=== PATIENT | male | born 1935 | race Caucasian/White ===

== ENCOUNTER 2023-01-23 07:33 | Inpatient (IN) ==
[2023-01-23] MEDS ORDERED: IOPAMIDOL 100 ML BOTTLE IV ONE (07:34)
[2023-01-23] MEDS ORDERED: morphine 10 MG/ML VIAL ONE (07:45)
[2023-01-23] MEDS ORDERED: ONDANSETRON 4 MG/2 ML VIAL ONE (07:45)
[2023-01-23] MEDS ORDERED: morphine 10 MG/ML VIAL IV ONE (07:45)
[2023-01-23] MEDS ORDERED: ONDANSETRON 4 MG/2 ML VIAL IV ONE ×2 (07:46→08:23)
[2023-01-23 07:49] LABS: POC Calcium, Ionized 1.1 (1.16-1.32); POC Creatinine 2.3 (0.6-1.2); POC Potassium 3.8 (3.3-5.1)
[2023-01-23] MEDS ORDERED: 0.9 % SODIUM CHLORIDE 1,000 ML IV ONE (07:51)
--- NOTE | 2023-01-23 07:53 | Emergency Department Note ---
HPI General Chief complaint: Abdominal Pain Stated complaint: nausea/vomiting, tachypnea Time Seen by Provider: 01/23/23 07:48 Source: patient Mode of arrival: ambulatory Limitations: no limitations History of Present Illness HPI Narrative: Narrative: Patient is an 87-year-old male with a history of of anemia, CKD, type 2 diabetes, hypertension, and hyperlipidemia who presents to the emergency department due to abdominal pain. Patient began to have pain at 4 AM, and it has been severe. It is sharp and in the belly with radiation to his back. He had worsening of this pain when trying to take medications. He has not had any other palliative or provocative factors. Patient endorses nausea as well. He denies any other symptoms at this time. Related Data Home Medications Medication Instructions Recorded Confirmed aspirin 81 mg chewable tablet 81 mg PO DAILY 10/22/16 01/23/23 nitroglycerin 0.4 mg sublingual 0.4 mg sublingual Q5M PRN chest 01/01/20 01/23/23 tablet pain vitamin A-vitamin C-vit E-min 1 tab PO QDAY 01/23/23 01/23/23 tablet Previous Rx's Medication Instructions Recorded cholecalciferol (vitamin D3) 50 50 mcg PO QDAY #90 tabs 12/20/20 mcg (2,000 unit) tablet telmisartan 20 mg tablet (Micardis) 20 mg PO QDAY #90 tabs 08/30/22 metoprolol succinate 25 mg 25 mg PO BID #180 tabs 10/03/22 tablet,extended release 24 hr prednisone 5 mg tablet 2.5 mg PO QDAY #90 tabs 11/03/22 allopurinol 300 mg tablet 300 mg PO QDAY #90 tabs 12/22/22 amlodipine 10 mg tablet (Norvasc) 10 mg PO QDAY #90 tabs 12/22/22 furosemide 20 mg tablet (Lasix) 20 mg PO QAM #90 tabs 12/22/22 metformin 500 mg tablet,extended 500 mg PO QDAY #90 tabs 12/22/22 release 24hr rosuvastatin 20 mg tablet (Crestor) 20 mg PO QDAY #90 tabs 12/22/22 warfarin 1 mg tablet 1.5 mg PO QDAY #135 tabs 01/02/23 warfarin 5 mg tablet 5 mg PO QDAY #90 tabs 01/02/23 omeprazole 20 mg capsule,delayed 20 mg PO QDAY #90 caps 01/09/23 release Allergies Allergy/AdvReac Type Severity Reaction Status Date / Time No Known Drug Allergies Allergy Verified 01/23/23 07:36 Review of Systems ROS ROS Narrative: Narrative: Constitutional: Denies fever or weakness Eyes: Denies vision change ENT ED: Denies throat pain or rhinorrhea Cardiovascular: Denies chest pain, dyspnea on exertion, orthopnea or edema Respiratory: Denies shortness of breath or cough Gastrointestinal: Reports abdominal pain and nausea; Denies vomiting, diarrhea, constipation, hematochezia or melena Genitourinary: Denies dysuria, frequency or hematuria Musculoskeletal: Reports back pain; Denies myalgia Integumentary: Denies rash or lesions Neurological: Denies headache or weakness PFS Narrative Patient History Narrative: Narrative: Medical/Surgical/Family History All Active Problems (Updated 01/24/23 @ 08:02 by Say Meyer MD) Abdominal pain (Acute) Cholelithiasis and cholecystitis without obstruction (Acute) Annual physical exam (Acute) 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, moderately decreased glomerular filtration rate (GFR) between 30-44 mL/min/1.73 square meter and albuminuria creatinine ratio between 30-299 mg/g (Chronic) Hyperkalemia (Acute) Osteoarthritis (Acute) Vitamin D deficiency (Chronic) Secondary hyperparathyroidism of renal origin (Chronic) Medicare annual wellness visit, subsequent (Acute) Encounter for vitamin deficiency screening (Chronic) Localized edema due to fluid overload (Chronic) 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) Polymyalgia rheumatica (Acute) Joint pain (Chronic) History of pacemaker (Chronic ~2012) Diabetes mellitus, type II (Chronic) Polymyalgia (Chronic) Bleeding tendency (Chronic) Arthritis (Chronic) Acid reflux (Chronic) History of colonoscopy (Chronic ~2009) History of tonsillectomy (Chronic) History of bilateral cataract extraction (Chronic ~2013) Type 2 diabetes mellitus with hyperglycemia, without long-term current use of insulin (Chronic) Essential hypertension (Chronic) History of pulmonary embolism (Chronic) Primary osteoarthritis of right knee (Chronic) Benign prostatic hyperplasia without lower urinary tract symptoms (Chronic) Allergic rhinitis due to allergen (Chronic) penitentiary current use of 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 (Chronic) Other restrictive cardiomyopathy (Chronic) Cardiomegaly (Chronic) Metabolic syndrome (Chronic) Gout (Chronic) Polymyalgia rheumatica (Chronic) Hyperlipidemia (Chronic) Atherosclerotic heart disease (Chronic) Contusion of head (Chronic) Upper respiratory infection (Chronic) Medical History Acid reflux Allergic rhinitis due to allergen Pollen Annual physical exam Arthritis Atherosclerotic heart disease W/O angina pectoris Benign prostatic hyperplasia without lower urinary tract symptoms Bleeding tendency On Coumadin Cardiomegaly Contusion of head Diabetes mellitus, type II Essential hypertension diagnosed in his 40s Gout History of pacemaker (~2012) History of pulmonary embolism Hyperlipidemia Joint pain penitentiary current use of 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 Medicare annual wellness visit, subsequent Metabolic syndrome Osteoarthritis Other restrictive cardiomyopathy Pacemaker PCI (pneumatosis cystoides intestinalis) (~2003) Polymyalgia Polymyalgia rheumatica Polymyalgia rheumatica Primary osteoarthritis of right knee Type 2 diabetes mellitus with hyperglycemia, without long-term current use of insulin diagnosed in his 60s, no known retinopathy or neuropathy Surgical History History of bilateral cataract extraction (~2013) History of colonoscopy (~2009) History of tonsillectomy Family History Sister ESRD (end stage renal disease) Social History Smoking Status: Never smoker Alcohol Intake Frequency: holiday/special occasion only Substance Use: does not use Exam Narrative Narrative: Narrative: General Limitations: no limitations General appearance: Present alert and in no apparent distress; Absent anxious, appears intoxicated or sleepy Head Head: Present atraumatic and normocephalic Eye Eye: Present EOMI; Absent scleral icterus or nystagmus ENT ENT: Present mucous membranes moist; Absent nasal congestion Neck Neck: Present full ROM and trachea midline Chest Chest: Present normal inspection and symmetric chest wall rise Respiratory Respiratory: Present normal lung sounds bilaterally; Absent respiratory distress, rales/crackles, wheezes, stridor or accessory muscle use Cardiovascular Cardiovascular: Present regular rate, normal rhythm and normal heart sounds Adbominal Abdominal: Present soft, tenderness, guarding, rebound and normal bowel sounds; Absent distention or rigidity Extremities Extremities: Present normal inspection and full ROM; Absent pedal edema or pretibial edema Back Back: Present normal inspection and full ROM; Absent CVA tenderness (R) or CVA tenderness (L) Neurological Neurological: Present alert and oriented X3 Psychiatric Psychiatric: Present normal affect and normal mood Skin Skin: Present warm (WNL), dry and normal color Course Vital Signs Vital signs: Vital Signs Temperature 97.1 F 01/23/23 07:33 Pulse Rate 78 01/23/23 07:33 Respiratory Rate 20 01/23/23 07:33 Blood Pressure 135/76 01/23/23 07:33 Pulse Oximetry (%) 100 01/23/23 07:33 Oxygen Delivery Method Room Air 01/23/23 07:33 Temperature 97.3 F 01/24/23 07:26 Pulse Rate 77 01/24/23 07:26 Respiratory Rate 10 L 01/24/23 07:26 Blood Pressure 104/56 01/24/23 07:26 Pulse Oximetry (%) 93 01/24/23 07:26 Oxygen Delivery Method Nasal Cannula 01/24/23 07:26 Oxygen Flow Rate (L/min) 2 01/24/23 07:26 MDM MDM Narrative Medical decision making narrative: Narrative: Patient is an 87-year-old male who presents to the emergency department due to severe abdominal pain. Patient was taken quickly to the CT scanner due to concern for possible aortic aneurysm or dissection. I did perform a bedside ultrasound prior to this, but had difficulty seeing the aorta in many locations due to shadowing from bowel gas. CT scan does not demonstrate dissection or aneurysm. There is some concern for cholelithiasis on this scan, and for this reason a formal ultrasound of the gallbladder has been ordered. Ultrasound demonstrates cholelithiasis, but no findings consistent with cholecystitis. Official CT read demonstrates findings concerning for possible internal hernia. For this reason I have called and spoken to Dr. Cali. He has agreed to review the CT scan. Dr. Cali has reviewed the CT scan, and does not feel that findings are consistent with an internal hernia, but has agreed to see and evaluate patient for admission because patient has required numerous doses of medication for pain. I do feel that a period of observation with serial abdominal exams is appropriate. Lab Data 01/24/23 05:33 01/24/23 05:33 Labs: Lab Results 01/23/23 01/23/23 01/23/23 Range/Units 07:46 07:46 07:46 WBC 13.6 H (4.5-11.0) K/mcL RBC 4.31 L (4.63-6.08) M/mcL Hgb 12.9 L (13.7-17.5) g/dL Hct 38.8 L (40.1-51.0) % POC Hct 41.0 (41-55) MCV 90.0 (80.0-100.0) fL MCH 29.9 (26.0-34.0) pg MCHC 33.2 (31.0-36.0) g/dL RDW 14.8 H (11.5-14.5) % Plt Count 250 (140-440) K/mcL MPV 11.8 (8.8-12.5) fL Immature Gran % (Auto) 0.2 (0.0-0.5) % Neut % (Auto) 60.5 (38.0-78.0) % Lymph % (Auto) 31.3 (15.5-49.0) % [place] % (Auto) 6.5 (1.0-12.0) % Eos % (Auto) 1.0 (0.0-7.0) % Baso % (Auto) 0.5 (0.0-2.0) % Lymph # (Auto) 4.25 (1.50-4.80) K/mcL [place] # (Auto) 0.88 (0.10-0.90) K/mcL Eos # (Auto) 0.14 (0.00-0.70) K/mcL Baso # (Auto) 0.07 (0.00-0.30) K/mcL Immature Gran # 0.03 (0.00-0.05) K/mcl Absolute Neutrophils 8.23 H (1.80-8.00) K/mcL POC VBG pH 7.59 H (7.32-7.42) POC VBG pCO2 at Temp 16.2 L* (41-51) POC VBG pO2 42 H (25-40) POC VBG HCO3 15.5 L (24-28) POC VBG Total CO2 16.0 L (25-29) POC Venous O2 Sat 88.0 H (40-70) POC VBG Base Excess -6.0 L (-2-2) VBG Lactic Acid 5.6 H* (0.5-2) POC Sodium 142 (133-145) POC Potassium 3.8 (3.3-5.1) POC Chloride 110 H (96-108) POC Total CO2 16.0 L (22-30) POC Anion Gap 20.0 H (8.0-16.0) POC BUN 31 H (6-20) POC Creatinine 2.3 H (0.6-1.2) POC Glucose 179 H (70-105) POC WB Ioniz Calcium 1.10 L (1.16-1.32) Total Bilirubin (0.1-1.0) mg/dL Direct Bilirubin (0-0.3) mg/dL AST (<40) U/L ALT (<40) U/L Alkaline Phosphatase (39-117) U/L Total Protein (5.9-8.4) gm/dL Albumin (3.2-5.2) gm/dL Globulin (2.2-3.7) gm/dL Lipase (7-60) U/L Urine Color Urine Appearance (Clear) Urine pH (5.0-9.0) Ur Specific [place] (1.000-1.035) Urine Protein (Negative) mg/dL Urine Glucose (UA) (Negative) mg/dL Urine Ketones (Negative) mg/dL Urine Occult Blood (Negative) mg/dL Urine Nitrate (Negative) Urine Bilirubin (Negative) mg/dL Urine Urobilinogen mg/dL Ur Leukocyte Esterase (Negative) /uL Urine RBC (0-3) /hpf Urine WBC (0-4) /hpf Ur Squamous Epith Cells (0-4) /hpf Urine Bacteria (0) /hpf Ur Culture Indicated? POC Troponin I (0.00-0.08) 01/23/23 01/23/23 01/23/23 Range/Units 07:46 07:48 10:34 WBC (4.5-11.0) K/mcL RBC (4.63-6.08) M/mcL Hgb (13.7-17.5) g/dL Hct (40.1-51.0) % POC Hct (41-55) MCV (80.0-100.0) fL MCH (26.0-34.0) pg MCHC (31.0-36.0) g/dL RDW (11.5-14.5) % Plt Count (140-440) K/mcL MPV (8.8-12.5) fL Immature Gran % (Auto) (0.0-0.5) % Neut % (Auto) (38.0-78.0) % Lymph % (Auto) (15.5-49.0) % [place] % (Auto) (1.0-12.0) % Eos % (Auto) (0.0-7.0) % Baso % (Auto) (0.0-2.0) % Lymph # (Auto) (1.50-4.80) K/mcL [place] # (Auto) (0.10-0.90) K/mcL Eos # (Auto) (0.00-0.70) K/mcL Baso # (Auto) (0.00-0.30) K/mcL Immature Gran # (0.00-0.05) K/mcl Absolute Neutrophils (1.80-8.00) K/mcL POC VBG pH 7.33 (7.32-7.42) POC VBG pCO2 at Temp 41.6 (41-51) POC VBG pO2 49 H (25-40) POC VBG HCO3 21.8 L (24-28) POC VBG Total CO2 23.0 L (25-29) POC Venous O2 Sat 82.0 H (40-70) POC VBG Base Excess -4.0 L (-2-2) VBG Lactic Acid 1.6 (0.5-2) POC Sodium (133-145) POC Potassium (3.3-5.1) POC Chloride (96-108) POC Total CO2 (22-30) POC Anion Gap (8.0-16.0) POC BUN (6-20) POC Creatinine (0.6-1.2) POC Glucose (70-105) POC WB Ioniz Calcium (1.16-1.32) Total Bilirubin 0.4 (0.1-1.0) mg/dL Direct Bilirubin < 0.2 (0-0.3) mg/dL AST 15 (<40) U/L ALT 14 (<40) U/L Alkaline Phosphatase 98 (39-117) U/L Total Protein 7.0 (5.9-8.4) gm/dL Albumin 4.4 (3.2-5.2) gm/dL Globulin 2.6 (2.2-3.7) gm/dL Lipase 61 H (7-60) U/L Urine Color Urine Appearance (Clear) Urine pH (5.0-9.0) Ur Specific [place] (1.000-1.035) Urine Protein (Negative) mg/dL Urine Glucose (UA) (Negative) mg/dL Urine Ketones (Negative) mg/dL Urine Occult Blood (Negative) mg/dL Urine Nitrate (Negative) Urine Bilirubin (Negative) mg/dL Urine Urobilinogen mg/dL Ur Leukocyte Esterase (Negative) /uL Urine RBC (0-3) /hpf Urine WBC (0-4) /hpf Ur Squamous Epith Cells (0-4) /hpf Urine Bacteria (0) /hpf Ur Culture Indicated? POC Troponin I 0.02 (0.00-0.08) 01/23/23 Range/Units 13:01 WBC (4.5-11.0) K/mcL RBC (4.63-6.08) M/mcL Hgb (13.7-17.5) g/dL Hct (40.1-51.0) % POC Hct (41-55) MCV (80.0-100.0) fL MCH (26.0-34.0) pg MCHC (31.0-36.0) g/dL RDW (11.5-14.5) % Plt Count (140-440) K/mcL MPV (8.8-12.5) fL Immature Gran % (Auto) (0.0-0.5) % Neut % (Auto) (38.0-78.0) % Lymph % (Auto) (15.5-49.0) % [place] % (Auto) (1.0-12.0) % Eos % (Auto) (0.0-7.0) % Baso % (Auto) (0.0-2.0) % Lymph # (Auto) (1.50-4.80) K/mcL [place] # (Auto) (0.10-0.90) K/mcL Eos # (Auto) (0.00-0.70) K/mcL Baso # (Auto) (0.00-0.30) K/mcL Immature Gran # (0.00-0.05) K/mcl Absolute Neutrophils (1.80-8.00) K/mcL POC VBG pH (7.32-7.42) POC VBG pCO2 at Temp (41-51) POC VBG pO2 (25-40) POC VBG HCO3 (24-28) POC VBG Total CO2 (25-29) POC Venous O2 Sat (40-70) POC VBG Base Excess (-2-2) VBG Lactic Acid (0.5-2) POC Sodium (133-145) POC Potassium (3.3-5.1) POC Chloride (96-108) POC Total CO2 (22-30) POC Anion Gap (8.0-16.0) POC BUN (6-20) POC Creatinine (0.6-1.2) POC Glucose (70-105) POC WB Ioniz Calcium (1.16-1.32) Total Bilirubin (0.1-1.0) mg/dL Direct Bilirubin (0-0.3) mg/dL AST (<40) U/L ALT (<40) U/L Alkaline Phosphatase (39-117) U/L Total Protein (5.9-8.4) gm/dL Albumin (3.2-5.2) gm/dL Globulin (2.2-3.7) gm/dL Lipase (7-60) U/L Urine Color Yellow Urine Appearance Clear (Clear) Urine pH 6.0 (5.0-9.0) Ur Specific [place] 1.030 (1.000-1.035) Urine Protein 30 A (Negative) mg/dL Urine Glucose (UA) 50 A (Negative) mg/dL Urine Ketones Negative (Negative) mg/dL Urine Occult Blood 0.03 (Negative) mg/dL Urine Nitrate Negative (Negative) Urine Bilirubin Negative (Negative) mg/dL Urine Urobilinogen 2.0 A mg/dL Ur Leukocyte Esterase Negative (Negative) /uL Urine RBC 1 (0-3) /hpf Urine WBC 1 (0-4) /hpf Ur Squamous Epith Cells < 1 (0-4) /hpf Urine Bacteria None (0) /hpf Ur Culture Indicated? No POC Troponin I (0.00-0.08) Discharge Plan Patient/Caregiver Discharge Instructions Pt seen by GENETIC COUNSELLOR/PA only: No Clinical Impression: Abdominal pain Patient Disposition: Xfer As Inpt ([facility]) Condition: Fair Discharge Date/Time: 01/23/23 14:02 Discharge Location: [facility]
[2023-01-23] MEDS ORDERED: HYDROmorphone 1 MG/ML SYRINGE IV ONE ×2 (08:33→10:44)
[2023-01-23 08:48] LABS: Basophils # (Auto) 0.07 K/mcL (0.00-0.30); Basophils % (Auto) 0.5 % (0.0-2.0); Eosinophils # (Auto) 0.14 K/mcL (0.00-0.70); Hematocrit 38.8 % (40.1-51.0); Hemoglobin 12.9 g/dL (13.7-17.5); Lymphocytes # (Auto) 4.25 K/mcL (1.50-4.80); Lymphocytes % (Auto) 31.3 % (15.5-49.0); Mean Corpuscular HGB Conc 33.2 g/dL (31.0-36.0); Mean Platelet Volume 11.8 fL (8.8-12.5); Monocytes # (Auto) 0.88 K/mcL (0.10-0.90); Monocytes % (Auto) 6.5 % (1.0-12.0); Neutrophils % (Auto) 60.5 % (38.0-78.0); Platelet Count 250 K/mcL (140-440); RBC 4.31 M/mcL (4.63-6.08); Red Cell Distribution Width 14.8 % (11.5-14.5); WBC 13.6 K/mcL (4.5-11.0)
[2023-01-23 09:00] LABS: ALT/SGPT 14 U/L (<40); AST/SGOT 15 U/L (<40); Albumin 4.4 gm/dL (3.2-5.2); Alkaline Phosphatase 98 U/L (39-117); Bilirubin,Direct < 0.2 mg/dL (0-0.3); Bilirubin,Total 0.4 mg/dL (0.1-1.0); Globulin 2.6 gm/dL (2.2-3.7)
--- NOTE | 2023-01-23 10:09 | Ultrasound Report ---
CLINICAL INFORMATION: Abdominal pain COMPARISON: None. FINDINGS: Liver is normal size with heterogeneous echotexture. No focal hepatic lesions. Multiple small stones are present within the gallbladder. Gallbladder wall is normal thickness-2 mm no focal tenderness on direct palpation. Common bile duct is normal at 4 mm. Pancreas not visualized due to bowel gas. No free fluid IMPRESSION: Cholelithiasis Interpreted and Authenticated by: Manoj Fisher 01/23/23
--- NOTE | 2023-01-23 10:37 | Cat Scan Report ---
CLINICAL INFORMATION: Elevated lactic acid and severe abdominal pain nausea COMPARISON: None. TECHNIQUE: 0.625 mm helical slices were obtained from the lung apices through the subtrochanteric regions of the femurs, prior to and 25 seconds after, intravenous injection of 80 cc Isovue-[id number]. Following reconstruction, 2.5 mm sagittal, coronal and axial reformatted images were processed and reviewed at multiple windows and levels. 7 mm MIP reconstructions were obtained through the lungs to optimize nodule detection.The exam was performed using radiation dose optimization techniques including, but not limited to, automated exposure control, adjustment of the mA and/or kV according to patient size and use of iterative reconstruction technique. FINDINGS: Pulmonary parenchymal windows show moderate patchy groundglass airspace disease throughout the posterior lower lobes more prominent on the left. This is presumably fibrosis although developing infiltrates, such as aspiration, is not excluded. Mild underlying bronchitis appreciated. There are no nodules.. Pleural spaces are unremarkable-no effusions. Mediastinal windows show the heart is mildly enlarged with heavy calcific plaque in the coronary arteries. There is also calcification of both mitral and aortic valves. Pacemaker leads satisfactory position. The pulmonary arteries are normal diameter well-opacified without evidence of embolus. Thoracic aorta is also normal diameter and well-opacified. There is no adenopathy in the mediastinal, hilar or axillary regions. Moderate hiatal hernia noted with mild wall thickening of the esophagus compatible with peptic disease. There is also a moderate paraesophageal hernia consisting of transmigrated intra-abdominal fat. The thyroid is unremarkable. Abdominal images show multiple small stones layering dependently within the gallbladder. The gallbladder is normal size and wall thickness-no evidence of cholecystitis. Intrahepatic and common bile ducts are normal caliber: CBD is 5 mm. The liver, both kidneys, right adrenal gland spleen, pancreas and aorta, including aortic branches, are normal in size, configuration and attenuation without focal lesion. 20 mm benign adenoma seen in the left adrenal gland. There is no free air, free fluid or adenopathy. Pelvic images show normal urinary bladder. Prostate is moderately enlarged with a transverse dimension of 6 cm. Seminal vesicles are normal. The stomach, small bowel, retrocecal appendix are unremarkable. There are multiple sigmoid diverticuli, but no evidence of diverticulitis. No evidence of ischemic bowel disease. There is; however a 5 cm region of fat anterior to the pancreatic head which demonstrates swirling of vasculature and slight extrinsic compression the anterior pancreatic head. This could represent a small internal hernia. Does not result in bowel obstruction or vessel compression. Bone windows show no focal osseous abnormality throughout the chest, abdomen or pelvis. There is diffuse osteopenia and degeneration in the lumbar spine IMPRESSION: 1. No definite acute disease. Anterior the pancreatic head, there is a 5 cm well circumscribed region of fat with swirling vasculature and mild compression of the anterior pancreatic head. This could represent an internal hernia. There is no evidence, however this obstructs bowel or causes only vascular compression. 2. Moderate vague groundglass airspace disease in both posterior lower lobes which likely represents fibrosis. Developing infiltrate, such as aspiration, is also possible. Suggest short-term follow-up chest radiographs. Underlying chronic bronchitis noted 3. Moderate hiatal hernia with moderate paraesophageal hernia. This would increase the patient's risk of aspiration 4. Cholelithiasis. No evidence of cholecystitis 5. Moderate prostate enlargement 6. Sigmoid diverticulosis but no evidence of diverticulitis Interpreted and Authenticated by: Manoj Fisher 01/23/23
[2023-01-23] MEDS ORDERED: 0.9 % SODIUM CHLORIDE 500 ML IV ONE (10:44)
[2023-01-23] MEDS ORDERED: ONDANSETRON 4 MG/2 ML VIAL IV PRN ×2 (11:02→15:58)
[2023-01-23] MEDS: HYDROmorphone 0.5 MG/0.5 ML SYRINGE IV PRN ×4 (12:38→23:45)
--- NOTE | 2023-01-23 14:04 | EKG ---
[facility] Test Date: 2023-01-23 Pat Name: Nico Burrows Department: ED Room: Gender: Male Ingot Stripper: : 1935 Requested By: Say Meyer Order Number: [id number] Reading MD: Adri Ayoub Measurements Intervals [place] Rate: 77 P: -5 OR: 213 QRS: -47 QRSD: 167 T: 127 QT: 466 QTc: 528 Interpretive Statements A-V dual-paced rhythm with some inhibition No further analysis attempted due to paced rhythm Electronically Signed On 01-23-2023 14:04:52 PDT by Adri Ayoub /store/M0/[id number]/[id number]
[2023-01-23 14:12] LABS: Appearance,Urine CLEAR (Clear); Bilirubin,Urine Negative (Negative); Color,Urine YELLOW; Culture Indicated,Urine No; Glucose,Urine (UA) 50 mg/dL (Negative); Ketones,Urine Negative (Negative); Leukocyte Esterase,Urine Negative /uL (Negative); Nitrate,Urine Negative (Negative); Protein,Urine 30 mg/dL (Negative); Urine Blood 0.03 mg/dL (Negative); Urine RBC 1 /hpf (0-3); Urine Squamous Epithelial Cell < 1 /hpf (0-4); Urine WBC 1 /hpf (0-4)
[2023-01-23] MEDS: LACTATED RINGERS 1,000 ML IV SCH (15:51)
[2023-01-23] MEDS: ACETAMINOPHEN 1,000 MG/100 ML BAG IV SCH (15:52)
[2023-01-23] MEDS ORDERED: ACETAMINOPHEN 1,000 MG/100 ML BAG IV SCH (16:00)
[2023-01-23] MEDS ORDERED: PROMETHAZINE 25 MG/ML VIAL IV PRN (16:04)
[2023-01-23] MEDS ORDERED: PHYTONADIONE 10 MG/ML AMPUL IV SCH (16:15)
[2023-01-23] MEDS ORDERED: 0.9 % SODIUM CHLORIDE 250 ML IV SCH (16:15)
--- NOTE | 2023-01-23 16:27 | General Surg History&Physical ---
HPI History of Present Illness Patient information: Note initiated : 01/23/23 at 4:14 pm Service Date, if different from initiated Date: [] Patient: Nico Burrows a 87 y/o M admitted on 01/23/23 for nausea/vomiting, tachypnea/hernia, cholesistitis. Chief Complaint: [] Chief complaint: Right upper quadrant pain with nausea and vomiting History of present illness: Mr. Burrows is a 87 year old M admitted with acute cholecystitis and cholelithiasis patient states that he was awakened at about 4 AM this morning with severe epigastric and right upper quadrant pain with radiation through to his back. He had severe nausea and retching but no actual emesis. The pain continued throughout the morning and he was seen in the emergency room. Exam revealed epigastric and right upper quadrant tenderness with mild guarding. He had a CT which was unremarkable except for dilated gallbladder with stones. Gallbladder ultrasound confirmed stones but no pericholecystic fluid. His pain recurs after his medication wears off. Patient has acute cholecystitis and will have cholecystectomy after his Coumadin is reversed. . Constitutional Constitutional: Present anorexia, fatigue, malaise and weakness EENT Ears: Present decreased hearing Cardiovascular Cardiovascular: Absent chest pain, claudication, dyspnea on exertion, palpatations or pedal edema Respiratory Respiratory: Absent cough, dyspnea on exertion or wheezing Gastrointestinal Gastrointestinal: Present abdominal pain, nausea and vomiting Integumentary Integumentary: Present changing lesions and unusual bruising Neurological Neurological: Present abnormal hearing and weakness Psychiatric Psychiatric: Absent depression Hematologic/Lymphatic Hematologic/Lymphatic: Present easy bleeding and easy bruising; Absent lymphadenopathy Allergic/Immunologic Allergic/Immunologic: Absent tongue swelling, throat swelling, uticaria, wheezing or lip swelling PFSH PFSH All Active Problems (Updated 01/23/23 @ 16:25 by Robert Cali MD) Cholelithiasis and cholecystitis without obstruction (Acute) Annual physical exam (Acute) 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, moderately decreased glomerular filtration rate (GFR) between 30-44 mL/min/1.73 square meter and albuminuria creatinine ratio between 30-299 mg/g (Chronic) Hyperkalemia (Acute) Osteoarthritis (Acute) Vitamin D deficiency (Chronic) Secondary hyperparathyroidism of renal origin (Chronic) Medicare annual wellness visit, subsequent (Acute) Encounter for vitamin deficiency screening (Chronic) Localized edema due to fluid overload (Chronic) 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) Polymyalgia rheumatica (Acute) Joint pain (Chronic) History of pacemaker (Chronic ~2012) Diabetes mellitus, type II (Chronic) Polymyalgia (Chronic) Bleeding tendency (Chronic) Arthritis (Chronic) Acid reflux (Chronic) History of colonoscopy (Chronic ~2009) History of tonsillectomy (Chronic) History of bilateral cataract extraction (Chronic ~2013) Type 2 diabetes mellitus with hyperglycemia, without long-term current use of insulin (Chronic) Essential hypertension (Chronic) History of pulmonary embolism (Chronic) Primary osteoarthritis of right knee (Chronic) Benign prostatic hyperplasia without lower urinary tract symptoms (Chronic) Allergic rhinitis due to allergen (Chronic) [facility] current use of 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 (Chronic) Other restrictive cardiomyopathy (Chronic) Cardiomegaly (Chronic) Metabolic syndrome (Chronic) Gout (Chronic) Polymyalgia rheumatica (Chronic) Hyperlipidemia (Chronic) Atherosclerotic heart disease (Chronic) Contusion of head (Chronic) Upper respiratory infection (Chronic) Medical History Acid reflux Allergic rhinitis due to allergen Pollen Annual physical exam Arthritis Atherosclerotic heart disease W/O angina pectoris Benign prostatic hyperplasia without lower urinary tract symptoms Bleeding tendency On Coumadin Cardiomegaly Contusion of head Diabetes mellitus, type II Essential hypertension diagnosed in his 40s Gout History of pacemaker (~2012) History of pulmonary embolism Hyperlipidemia 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 Medicare annual wellness visit, subsequent Metabolic syndrome Osteoarthritis Other restrictive cardiomyopathy Pacemaker PCI (pneumatosis cystoides intestinalis) (~2003) Polymyalgia Polymyalgia rheumatica Polymyalgia rheumatica Primary osteoarthritis of right knee Type 2 diabetes mellitus with hyperglycemia, without long-term current use of in sulin diagnosed in his 60s, no known retinopathy or neuropathy Surgical History History of bilateral cataract extraction (~2013) History of colonoscopy (~2009) History of tonsillectomy Family History Sister ESRD (end stage renal disease) Social History marital status: smoking status: Former smoker quit date: 08/13/72 alcohol intake frequency: holiday/special occasion only substance use type: does not use MEDS/ALLERGIES Home Medications and Allergies Home Medications Medication Instructions Recorded Confirmed Type aspirin 81 mg chewable tablet 81 mg PO DAILY 10/22/16 01/23/23 History nitroglycerin 0.4 mg sublingual 0.4 mg sublingual Q5M PRN chest 01/01/2001/23 History tablet pain cholecalciferol (vitamin D3) 50 50 mcg PO QDAY #90 tabs 12/20/20 01/23/23 Rx mcg (2,000 unit) tablet telmisartan 20 mg tablet (Micardis) 20 mg PO QDAY #90 tabs 08/30/22 01/23/23 Rx metoprolol succinate 25 mg 25 mg PO BID #180 tabs 10/03/22 01/23/23 Rx tablet,extended release 24 hr prednisone 5 mg tablet 2.5 mg PO QDAY #90 tabs 11/03/22 01/23/23 Rx allopurinol 300 mg tablet 300 mg PO QDAY #90 tabs 12/22/22 01/23/23 Rx amlodipine 10 mg tablet (Norvasc) 10 mg PO QDAY #90 tabs 12/22/22 01/23/23 Rx furosemide 20 mg tablet (Lasix) 20 mg PO QAM #90 tabs 12/22/22 01/23/23 Rx metformin 500 mg tablet,extended 500 mg PO QDAY #90 tabs 12/22/22 01/23/23 Rx release 24hr rosuvastatin 20 mg tablet (Crestor) 20 mg PO QDAY #90 tabs 12/22/22 01/23/23 Rx warfarin 1 mg tablet 1.5 mg PO QDAY #135 tabs 01/02/23 01/23/23 Rx warfarin 5 mg tablet 5 mg PO QDAY #90 tabs 01/02/23 01/23/23 Rx omeprazole 20 mg capsule,delayed 20 mg PO QDAY #90 caps 01/09/23 01/23/23 Rx release vitamin A-vitamin C-vit E-min 1 tab PO QDAY 01/23/23 01/23/23 History tablet Allergies Allergy/AdvReac Type Severity Reaction Status Date / Time No Known Drug Allergies Allergy Verified 01/23/23 07:36 Physical Examination Vital Signs Vital signs: Temp Pulse Resp BP Pulse Ox O2 Del Method O2 Flow Rate 97.1 F 101 H 24 H 144/75 97 Nasal Cannula 2 01/23/23 07:33 01/23/23 13:16 01/23/23 13:16 01/23/23 13:16 01/23/23 13:16 01/23/23 08:52 01/23/23 08:52 General physical appearance General physical exam: well developed, well nourished, moderate distress, severe pain and obese Eyes Eye exam: PERRL and normal ocular movement; negative icteric ENT ENT exam: normal mucosa, no congestion and decreased hearing Head Head exam IM: Present atraumatic, normal inspection and normocephalic Neck Neck exam: no masses, no bruits, trachea midline, no lymphadenopathy and no venous distension Cardiovascular Cardiovascular exam IM: Present normal rate and rhythm, RRR, +S1 and +S2; Absent JVD Respiratory Respiratory exam: normal expansion, normal respiratory effort, clear to percussion and clear to auscultation Abdomen Abdomen: Present tender (Epigastric and right upper quadrant tenderness with g uarding), guarding and distended Integumentary Integumentary: Present no rash, no growths, no abnormal pigmentation and other (Extensive bruising) Neurologic Neurologic: Present normal coordination and normal sensation Musculoskeletal Musculoskeletal: Present normal gait and normal posture Psychiatric Psychiatric: Present oriented to time, oriented to person, oriented to place, speech is normal and memory intact Results Labs 01/23/23 07:46 Labs: Abnormal lab results 01/23/23 01/23/23 01/23/23 Range/Units 07:46 07:46 07:46 WBC 13.6 H (4.5-11.0) K/mcL RBC 4.31 L (4.63-6.08) M/mcL Hgb 12.9 L (13.7-17.5) g/dL Hct 38.8 L (40.1-51.0) % RDW 14.8 H (11.5-14.5) % Absolute Neutrophils 8.23 H (1.80-8.00) K/mcL POC VBG pH 7.59 H (7.32-7.42) POC VBG pCO2 at Temp 16.2 L* (41-51) POC VBG pO2 42 H (25-40) POC VBG HCO3 15.5 L (24-28) POC VBG Total CO2 16.0 L (25-29) POC Venous O2 Sat 88.0 H (40-70) POC VBG Base Excess -6.0 L (-2-2) VBG Lactic Acid 5.6 H* (0.5-2) POC Chloride 110 H (96-108) POC Total CO2 16.0 L (22-30) POC Anion Gap 20.0 H (8.0-16.0) POC BUN 31 H (6-20) POC Creatinine 2.3 H (0.6-1.2) POC Glucose 179 H (70-105) POC WB Ioniz Calcium 1.10 L (1.16-1.32) Lipase (7-60) U/L Urine Protein (Negative) mg/dL Urine Glucose (UA) (Negative) mg/dL Urine Urobilinogen mg/dL 01/23/23 01/23/23 01/23/23 Range/Units 07:46 10:34 13:01 WBC (4.5-11.0) K/mcL RBC (4.63-6.08) M/mcL Hgb (13.7-17.5) g/dL Hct (40.1-51.0) % RDW (11.5-14.5) % Absolute Neutrophils (1.80-8.00) K/mcL POC VBG pH (7.32-7.42) POC VBG pCO2 at Temp (41-51) POC VBG pO2 49 H (25-40) POC VBG HCO3 21.8 L (24-28) POC VBG Total CO2 23.0 L (25-29) POC Venous O2 Sat 82.0 H (40-70) POC VBG Base Excess -4.0 L (-2-2) VBG Lactic Acid (0.5-2) POC Chloride (96-108) POC Total CO2 (22-30) POC Anion Gap (8.0-16.0) POC BUN (6-20) POC Creatinine (0.6-1.2) POC Glucose (70-105) POC WB Ioniz Calcium (1.16-1.32) Lipase 61 H (7-60) U/L Urine Protein 30 A (Negative) mg/dL Urine Glucose (UA) 50 A (Negative) mg/dL Urine Urobilinogen 2.0 A mg/dL Diabetes panel 01/23/23 Range/Units 07:46 AST 15 (<40) U/L ALT 14 (<40) U/L Alkaline Phosphatase 98 (39-117) U/L Total Protein 7.0 (5.9-8.4) gm/dL Albumin 4.4 (3.2-5.2) gm/dL Calcium panel 01/23/23 Range/Units 07:46 Albumin 4.4 (3.2-5.2) gm/dL Adrenal panel 01/23/23 Range/Units 07:46 Total Bilirubin 0.4 (0.1-1.0) mg/dL AST 15 (<40) U/L ALT 14 (<40) U/L Alkaline Phosphatase 98 (39-117) U/L Total Protein 7.0 (5.9-8.4) gm/dL Albumin 4.4 (3.2-5.2) gm/dL All other labs normal. A/P Assessment and plan (1) Cholelithiasis and cholecystitis without obstruction: Status: Acute (2) Anemia due to stage 3b chronic kidney disease: Status: Chronic (3) Polymyalgia rheumatica: Status: Acute (4) History of pacemaker: Status: Chronic (5) Diabetes mellitus, type II: Status: Chronic (6) Bleeding tendency: Status: Chronic Comment: On Coumadin (7) Essential hypertension: Status: Chronic Comment: diagnosed in his 40s (8) [facility] current use of 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: Status: Chronic Plan Patient will receive analgesics as needed to control pain Started on Zosyn every 6 hours Vitamin K 10 mg IV every 12 hours x2 doses Transfused 2 units of FFP tonight Recheck PT/INR in the a.m. Repeat FFP if needed in the early a.m. Scheduled for laparoscopic cholecystectomy tomorrow Sepsis Sepsis Identified: No Time Spent With Patient Time: Total time spent is greater than 50% in coordination of care (as documented) at patient's floor/unit and/or counseling patient:
[2023-01-23] MEDS: PHYTONADIONE 10 MG in 0.9 % SODIUM CHLORIDE 50 ML IV SCH (16:33)
[2023-01-23] MEDS: 0.9 % SODIUM CHLORIDE 1,000 ML IV SCH (16:33)
--- NOTE | 2023-01-23 16:39 | XRay Report ---
CLINICAL INFORMATION: preop COMPARISON: 06/06/2019 FINDINGS: The heart is mildly enlarged but unchanged. Pacemaker leads in stable satisfactory position. Mediastinum and pulmonary vessels are normal. Minor bibasilar atelectasis noted. IMPRESSION: Mild stable cardiomegaly. Interpreted and Authenticated by: Manoj Fisher 01/23/23
[2023-01-23] MEDS: PANTOPRAZOLE 40 MG VIAL IV SCH (17:51)
[2023-01-23] MEDS: PIPERACILLIN SODIUM/TAZOBACTAM 2.25 GM in DEXTROSE 5% IN WATER 50 ML IV SCH (17:52)
[2023-01-23] MEDS ORDERED: IPRATROPIUM/ALBUTEROL 3 ML AMPUL.NEB NEB PRN (17:57)
[2023-01-23] MEDS ORDERED: PHYTONADIONE 10 MG/ML AMPUL SQ SCH (21:00)
[2023-01-23] MEDS: METOPROLOL SUCCINATE 25 MG TAB.XL.24H PO SCH (21:54)
[2023-01-24] MEDS: PIPERACILLIN SODIUM/TAZOBACTAM 2.25 GM in DEXTROSE 5% IN WATER 50 ML IV SCH ×4 (00:54→18:43)
[2023-01-24] MEDS: ACETAMINOPHEN 1,000 MG/100 ML BAG IV SCH ×5 (01:06→23:38)
[2023-01-24] MEDS: HYDROmorphone 0.5 MG/0.5 ML SYRINGE IV PRN ×2 (01:55→05:31)
[2023-01-24] MEDS: LACTATED RINGERS 1,000 ML IV SCH (05:03)
[2023-01-24] MEDS: PHYTONADIONE 10 MG in 0.9 % SODIUM CHLORIDE 50 ML IV SCH (05:18)
[2023-01-24] MEDS: 0.9 % SODIUM CHLORIDE 1,000 ML IV SCH ×2 (05:32→14:02)
[2023-01-24 06:59] LABS: Basophils # (Auto) 0.02 K/mcL (0.00-0.30); Basophils % (Auto) 0.1 % (0.0-2.0); Eosinophils # (Auto) 0 K/mcL (0.00-0.70); Eosinophils % (Auto) 0 % (0.0-7.0); Hemoglobin 12.2 g/dL (13.7-17.5); Lymphocytes # (Auto) 0.88 K/mcL (1.50-4.80); Lymphocytes % (Auto) 4.8 % (15.5-49.0); Mean Cell Volume 94.9 fL (80.0-100.0); Mean Corpuscular HGB Conc 31.3 g/dL (31.0-36.0); Mean Platelet Volume 11.9 fL (8.8-12.5); Monocytes % (Auto) 4.4 % (1.0-12.0); Neutrophils % (Auto) 90.3 % (38.0-78.0); Platelet Count 229 K/mcL (140-440); RBC 4.11 M/mcL (4.63-6.08); Red Cell Distribution Width 15.8 % (11.5-14.5); WBC 18.2 K/mcL (4.5-11.0)
[2023-01-24] MEDS: PANTOPRAZOLE 40 MG VIAL IV SCH ×2 (06:59→17:42)
[2023-01-24 07:19] LABS: INR 1.3 (0.9-1.1); Prothrombin Time 16.7 sec (11.9-14.5)
[2023-01-24 07:48] LABS: ALT/SGPT 23 U/L (<40); AST/SGOT 27 U/L (<40); Albumin 4.3 gm/dL (3.2-5.2); Albumin/Globulin Ratio 1.5 (1.0-2.3); Alkaline Phosphatase 85 U/L (39-117); Bilirubin,Direct 0.4 mg/dL (<0.3); Blood Urea Nitrogen 36 mg/dL (8-23); Calcium 8.8 mg/dL (8.6-10.4); Carbon Dioxide 22 mmol/L (22-30); Chloride 105 mmol/L (96-108); Globulin 2.9 gm/dL (2.2-3.7); Glomerular Filtration Rate 26; Glucose 134 mg/dL (70-105); Lactate Dehydrogenase 248 U/L (135-225); Phosphorous 5.3 mg/dL (2.5-4.5); Triglycerides 76 mg/dL (<150); Uric Acid 3.9 mg/dL (2.5-8.0)
[2023-01-24 09:40] LABS: INR 1.3 (0.9-1.1); Prothrombin Time 16.6 sec (11.9-14.5)
[2023-01-24] MEDS: predniSONE 5 MG TABLET PO SCH (10:54)
[2023-01-24] MEDS: amLODIPine 10 MG TABLET PO SCH (10:55)
[2023-01-24] MEDS: METOPROLOL SUCCINATE 25 MG TAB.XL.24H PO SCH ×2 (10:55→20:58)
[2023-01-24] MEDS: LOSARTAN 50 MG TABLET PO SCH (10:55)
[2023-01-24] MEDS ORDERED: DEXAMETHASONE 10 MG/ML VIAL ONE (11:45)
[2023-01-24] MEDS ORDERED: fentaNYL 100 MCG/2 ML VIAL IV ONE (11:45)
[2023-01-24] MEDS ORDERED: ONDANSETRON 4 MG/2 ML VIAL ONE (11:45)
[2023-01-24] MEDS ORDERED: LIDOCAINE HCL/PF 100 MG/5 ML SYRINGE IV ONE (11:45)
[2023-01-24] MEDS ORDERED: KETAMINE 50 MG/ML Syringe (ANEST) IV ONE (11:45)
[2023-01-24] MEDS ORDERED: PHENYLephrine 1 MG/10 ML SYRINGE (ANEST) ONE (11:45)
[2023-01-24] MEDS ORDERED: FUROSEMIDE 20 MG/2 ML VIAL IV ONE (11:45)
[2023-01-24] MEDS ORDERED: ePHEDrine 50 MG/5 ML SYRINGE (ANEST) IV ONE (11:45)
[2023-01-24] MEDS ORDERED: PROPOFOL 200 MG/20 ML VIAL IV ONE (11:45)
[2023-01-24] MEDS ORDERED: MAGNESIUM SULFATE 2 GM/50 ML BAG IV ONE (11:45)
[2023-01-24] MEDS ORDERED: SUGAMMADEX SODIUM 200 MG/2 ML VIAL IV ONE (11:45)
[2023-01-24] MEDS ORDERED: ROCURONIUM 10 MG/ML ML IV ONE (11:45)
[2023-01-24] MEDS ORDERED: ONDANSETRON 4 MG/2 ML VIAL IV PRN (12:16)
[2023-01-24] MEDS ORDERED: fentaNYL 100 MCG/2 ML VIAL IV PRN (12:16)
[2023-01-24] MEDS ORDERED: PROMETHAZINE 25 MG/ML VIAL IV PRN (12:16)
[2023-01-24] MEDS ORDERED: IPRATROPIUM/ALBUTEROL 3 ML AMPUL.NEB NEB PRN (12:16)
[2023-01-24] MEDS ORDERED: NALOXONE HCL 0.4 MG/ML VIAL IV PRN (12:16)
[2023-01-24] MEDS ORDERED: LACTATED RINGERS 250 ML IV PRN (12:16)
[2023-01-24] MEDS ORDERED: diphenhydrAMINE 50 MG/ML VIAL IV PRN (12:16)
[2023-01-24] MEDS ORDERED: MEPERIDINE 25 MG/ML VIAL IV PRN (12:16)
[2023-01-24] MEDS ORDERED: LACTATED RINGERS 1,000 ML IV SCH (12:30)
--- NOTE | 2023-01-24 12:53 | Brief Operative Note ---
Brief Operative Note Date of procedure: 01/24/23 Pre-op diagnosis: acute cholecystitis with cholelithiasis Post-op diagnosis: other (acute gangrenous cholecystitis with cholelithiasis) Procedure: laparoscopic cholecystectomy Grafts/Implants: No ( #10 nehemias drain ) Anesthesia: GETA Findings: ACUTE SEVERE GANGRENOUS CHOLECYSTITIS WITH WALL NECROSIS Complications: none Surgeon: Robert Cali Estimated blood loss (cc): 25 Specimens Removed/Pathology: other Condition: stable Disposition: PACU
[2023-01-25] MEDS: PIPERACILLIN SODIUM/TAZOBACTAM 2.25 GM in DEXTROSE 5% IN WATER 50 ML IV SCH ×5 (00:38→23:42)
[2023-01-25] MEDS: 0.9 % SODIUM CHLORIDE 1,000 ML IV SCH ×5 (01:03→17:54)
[2023-01-25] MEDS: ACETAMINOPHEN 1,000 MG/100 ML BAG IV SCH ×3 (05:03→18:58)
[2023-01-25 06:42] LABS: Basophils # (Auto) 0.01 K/mcL (0.00-0.30); Basophils % (Auto) 0.1 % (0.0-2.0); Eosinophils # (Auto) 0 K/mcL (0.00-0.70); Eosinophils % (Auto) 0 % (0.0-7.0); Hematocrit 31.8 % (40.1-51.0); Hemoglobin 10.3 g/dL (13.7-17.5); Lymphocytes # (Auto) 0.66 K/mcL (1.50-4.80); Lymphocytes % (Auto) 4.9 % (15.5-49.0); Mean Cell Volume 93.8 fL (80.0-100.0); Mean Corpuscular HGB Conc 32.4 g/dL (31.0-36.0); Mean Platelet Volume 11.9 fL (8.8-12.5); Monocytes # (Auto) 0.49 K/mcL (0.10-0.90); Monocytes % (Auto) 3.7 % (1.0-12.0); Platelet Count 166 K/mcL (140-440); RBC 3.39 M/mcL (4.63-6.08); Red Cell Distribution Width 15.9 % (11.5-14.5); WBC 13.4 K/mcL (4.5-11.0)
[2023-01-25 07:11] LABS: ALT/SGPT 38 U/L (<40); AST/SGOT 85 U/L (<40); Albumin 3.4 gm/dL (3.2-5.2); Albumin/Globulin Ratio 1.3 (1.0-2.3); Alkaline Phosphatase 66 U/L (39-117); Bilirubin,Direct 0.3 mg/dL (<0.3); Bilirubin,Total 0.7 mg/dL (0.1-1.0); Blood Urea Nitrogen 42 mg/dL (8-23); Calcium 8.9 mg/dL (8.6-10.4); Carbon Dioxide 22 mmol/L (22-30); Chloride 106 mmol/L (96-108); Globulin 2.7 gm/dL (2.2-3.7); Glomerular Filtration Rate 28; Glucose 141 mg/dL (70-105); Lactate Dehydrogenase 234 U/L (135-225); Phosphorous 3.7 mg/dL (2.5-4.5); Triglycerides 92 mg/dL (<150); Uric Acid 3.9 mg/dL (2.5-8.0)
[2023-01-25] MEDS: PANTOPRAZOLE 40 MG VIAL IV SCH ×2 (07:28→17:05)
[2023-01-25] MEDS: predniSONE 5 MG TABLET PO SCH (08:09)
[2023-01-25 09:21] LABS: Neutrophils % (Auto) 90.4 % (38.0-78.0)
[2023-01-25] MEDS: METOPROLOL SUCCINATE 25 MG TAB.XL.24H PO SCH ×2 (10:07→20:40)
[2023-01-25] MEDS: LOSARTAN 50 MG TABLET PO SCH (10:07)
[2023-01-25] MEDS: amLODIPine 10 MG TABLET PO SCH (10:07)
--- NOTE | 2023-01-25 17:49 | General Surgery Progress Note ---
SUBJECTIVE Subjective Patient information: Note initiated : 01/25/23 at 5:45 pm Service Date, if different from initiated Date: [] Patient: Nico Burrows 87 y/o M admitted on 01/23/23 for nausea/vomiting, tachypnea/hernia, cholesistitis. Chief Complaint: [] Principal diagnosis: Acute gangrenous cholecystitis Interval history: Patient states that he feels much better. He has been afebrile. He denies nausea or vomiting. White blood count 13.4, hemoglobin 10.3, hematocrit 31 point Constitutional Vitals: Vital Signs Temp Pulse Resp BP Pulse Ox O2 Del Method O2 Flow Rate 98.6 F 82 16 111/64 96 Room Air 2 01/25/23 16:00 01/25/23 16:00 01/25/23 16:00 01/25/23 16:00 01/25/23 16:00 01/25/23 16:00 01/25/23 12:00 Period Temp Pulse Resp BP Sys/Rollins Pulse Ox O2 Del Method O2 Flow Rate Last 24 Hr 98.2 F-99.3 F 79-88 16-20 111-137/63-70 90-97 Nasal Cannula- Room Air 2-2 Intake and Output 01/25/23 01/25/23 01/25/23 03:59 11:59 19:59 Intake Total 7860 485 4855 Output Total 955 895 Balance 216 227 3468 Weight 244 lb 6.4 oz Intake & Output: Intake & Output 01/25/23 01/25/23 01/25/23 03:59 11:59 19:59 Intake Total 5388 224 2460 Output Total 955 895 Balance 405 759 8608 Weight 244 lb 6.4 oz Intake: IV 6407 276 5690 Sodium Chloride 0.9% 1,000 ml @ 1000 1000 100 mls/hr IV .Q10H [facility] Rx#: [id number] Zosyn 2.25 gm In Dextrose 5% in 50 50 50 Water 50 ml @ 100 mls/hr IV Q6H [facility] Rx#:[id number] Oral 100 1250 Output: Drainage 55 Abdomen 55 Drainage 45 Abdomen 45 Urine Catheter Amount 900 850 Other: Meal Lunch Percent of Meal Consumed 100% Feeding Ability Assist with Tray Set Up Urine Appearance Cloudy Clear Clear Uretheral (Rod) Clear Clear Urine Color Yellow Bright Yellow Dark Yellow Uretheral (Rod) Bright Yellow Dark Yellow Urine Odor Normal Normal Uretheral (Rod) Normal Normal Stool Size Copious Stool Color Brown Stool Consistency Liquid Loose # Bowel Movements 1 # of times incontinent of 1 Bowels ENT ENT exam: Present mucous membranes moist, normal external ear exam and normal oropharynx Neck Neck exam: Present full ROM and normal inspection Respiratory Respiratory exam: Present normal respiratory exam and CTAB Cardiovascular Cardiovascular exam: Present normal rate and rhythm, RRR, +S1 and +S2; Absent JVD GI/Abdominal GI/Abdominal exam: Present normal bowel sounds, distended (Mild diffuse distention) and tenderness (Incisional tenderness around port sites) Extremities Exam Extremities exam: Present normal inspection and neurovascular intact Neurological Exam Neurological exam: Present oriented X3; Absent motor sensory deficit Psychiatric Psychiatric exam: Present normal affect and normal mood A/P Assessment and plan (1) Cholelithiasis and cholecystitis without obstruction: Status: Acute (2) Anemia due to stage 3b chronic kidney disease: Status: Chronic (3) Diabetes mellitus, type II: Status: Chronic (4) Essential hypertension: Status: Chronic Comment: diagnosed in his 40s Plan Continue patient on antibiotics Check CBC tomorrow Check PT/INR tomorrow Time Spent With Patient Time: Total time spent is greater than 50% in coordination of care (as documented) at patient's floor/unit and/or counseling patient:
[2023-01-26] MEDS: ACETAMINOPHEN 1,000 MG/100 ML BAG IV SCH ×4 (00:19→18:55)
[2023-01-26] MEDS: 0.9 % SODIUM CHLORIDE 1,000 ML IV SCH ×2 (03:20→15:41)
[2023-01-26] MEDS: PIPERACILLIN SODIUM/TAZOBACTAM 2.25 GM in DEXTROSE 5% IN WATER 50 ML IV SCH ×3 (05:19→18:11)
[2023-01-26 06:24] LABS: Basophils # (Auto) 0.01 K/mcL (0.00-0.30); Basophils % (Auto) 0.1 % (0.0-2.0); Eosinophils # (Auto) 0.01 K/mcL (0.00-0.70); Eosinophils % (Auto) 0.1 % (0.0-7.0); Hematocrit 31.9 % (40.1-51.0); Hemoglobin 10.3 g/dL (13.7-17.5); Lymphocytes # (Auto) 0.86 K/mcL (1.50-4.80); Lymphocytes % (Auto) 7.5 % (15.5-49.0); Mean Cell Volume 92.5 fL (80.0-100.0); Mean Corpuscular HGB Conc 32.3 g/dL (31.0-36.0); Mean Platelet Volume 12.2 fL (8.8-12.5); Monocytes # (Auto) 0.44 K/mcL (0.10-0.90); Monocytes % (Auto) 3.9 % (1.0-12.0); Neutrophils % (Auto) 87.3 % (38.0-78.0); Platelet Count 182 K/mcL (140-440); RBC 3.45 M/mcL (4.63-6.08); Red Cell Distribution Width 15.7 % (11.5-14.5); WBC 11.4 K/mcL (4.5-11.0)
[2023-01-26 06:38] LABS: INR 1.1 (0.9-1.1); Prothrombin Time 15.1 sec (11.9-14.5)
[2023-01-26 06:50] LABS: ALT/SGPT 56 U/L (<40); AST/SGOT 91 U/L (<40); Albumin 3.2 gm/dL (3.2-5.2); Alkaline Phosphatase 71 U/L (39-117); Bilirubin,Direct 0.2 mg/dL (<0.3); Bilirubin,Total 0.6 mg/dL (0.1-1.0); Blood Urea Nitrogen 40 mg/dL (8-23); Calcium 8.8 mg/dL (8.6-10.4); Carbon Dioxide 21 mmol/L (22-30); Chloride 108 mmol/L (96-108); Globulin 3.2 gm/dL (2.2-3.7); Glomerular Filtration Rate 33; Glucose 138 mg/dL (70-105); Lactate Dehydrogenase 286 U/L (135-225); Phosphorous 2.4 mg/dL (2.5-4.5); Triglycerides 207 mg/dL (<150); Uric Acid 3.5 mg/dL (2.5-8.0)
[2023-01-26] MEDS: PANTOPRAZOLE 40 MG VIAL IV SCH ×2 (07:08→16:33)
[2023-01-26] MEDS: predniSONE 5 MG TABLET PO SCH (08:53)
[2023-01-26] MEDS: amLODIPine 10 MG TABLET PO SCH (09:18)
[2023-01-26] MEDS: METOPROLOL SUCCINATE 25 MG TAB.XL.24H PO SCH ×2 (09:19→20:09)
[2023-01-26] MEDS: LOSARTAN 50 MG TABLET PO SCH (09:19)
--- NOTE | 2023-01-26 15:07 | General Surgery Progress Note ---
SUBJECTIVE Subjective Patient information: Note initiated : 01/26/23 at 3:03 pm Service Date, if different from initiated Date: [] Patient: Nico Burrows 87 y/o M admitted on 01/23/23 for nausea/vomiting, tachypnea/hernia, cholesistitis. Chief Complaint: [] Principal diagnosis: Acute gangrenous cholecystitis Interval history: Patient is clinically improved. He still feels weak however he states that it is better than yesterday. Pain is controlled. He still has moderate amount of bloody drainage. Constitutional Vitals: Vital Signs Temp Pulse Resp BP Pulse Ox O2 Del Method O2 Flow Rate 98.1 F 78 18 125/75 97 Room Air 0 01/26/23 13:55 01/26/23 11:52 01/26/23 11:52 01/26/23 11:52 01/26/23 11:52 01/26/23 11:52 01/26/23 11:52 Period Temp Pulse Resp BP Sys/Rollins Pulse Ox O2 Del Method O2 Flow Rate Last 24 Hr 97.5 F-98.6 F 71-88 16-20 100-128/56-75 87-98 Nasal Cannula- Room Air 0-2 Intake and Output 01/26/23 01/26/23 01/26/23 03:59 11:59 19:59 Intake Total 9004 428 6642 Output Total 655 600 Balance 570 -210 1310 Intake & Output: Intake & Output 01/26/23 01/26/23 01/26/23 03:59 11:59 19:59 Intake Total 0436 380 5548 Output Total 655 600 Balance 570 -210 1310 Intake: IV 1893 910 1643 Sodium Chloride 0.9% 1,000 ml @ 1000 1000 100 mls/hr IV .Q10H [facility] Rx#: [id number] Zosyn 2.25 gm In Dextrose 5% in 50 50 50 Water 50 ml @ 100 mls/hr IV Q6H [facility] Rx#:[id number] Oral 75 240 260 Output: Drainage 30 Abdomen 30 Void Amount 625 600 Other: Meal Breakfast Lunch Percent of Meal Consumed 100% 100% Feeding Ability Assist with Tray Set Up Independent Urine Appearance Clear Clear Urine Color Yellow Bright Yellow Urine Odor Normal Stool Size Small Stool Color Brown Stool Consistency Loose # Voids 1 # Bowel Movements 1 # of times incontinent of 1 Bowels ENT ENT exam: Present mucous membranes moist, normal external ear exam and normal oropharynx Neck Neck exam: Present full ROM and normal inspection Respiratory Respiratory exam: Present normal respiratory exam and CTAB Cardiovascular Cardiovascular exam: Present normal rate and rhythm, RRR, +S1 and +S2; Absent JVD GI/Abdominal GI/Abdominal exam: Present normal bowel sounds, distended (Mild diffuse distention) and tenderness (Incisional tenderness around port sites) Extremities Exam Extremities exam: Present normal inspection and neurovascular intact Neurological Exam Neurological exam: Present oriented X3; Absent motor sensory deficit Psychiatric Psychiatric exam: Present normal affect and normal mood A/P Assessment and plan (1) Cholelithiasis and cholecystitis without obstruction: Status: Acute (2) Anemia due to stage 3b chronic kidney disease: Status: Chronic (3) Localized edema due to fluid overload: Status: Chronic (4) Diabetes mellitus, type II: Status: Chronic (5) History of pulmonary embolism: Status: Chronic (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
[2023-01-27] MEDS: PIPERACILLIN SODIUM/TAZOBACTAM 2.25 GM in DEXTROSE 5% IN WATER 50 ML IV SCH ×5 (00:27→23:21)
[2023-01-27] MEDS: ACETAMINOPHEN 1,000 MG/100 ML BAG IV SCH ×5 (01:04→23:48)
[2023-01-27 06:46] LABS: Basophils # (Auto) 0.01 K/mcL (0.00-0.30); Basophils % (Auto) 0.1 % (0.0-2.0); Eosinophils # (Auto) 0.15 K/mcL (0.00-0.70); Eosinophils % (Auto) 1.9 % (0.0-7.0); Hematocrit 30.5 % (40.1-51.0); Hemoglobin 9.9 g/dL (13.7-17.5); Lymphocytes # (Auto) 1.26 K/mcL (1.50-4.80); Lymphocytes % (Auto) 15.6 % (15.5-49.0); Mean Cell Volume 91.3 fL (80.0-100.0); Mean Corpuscular HGB Conc 32.5 g/dL (31.0-36.0); Mean Platelet Volume 11.8 fL (8.8-12.5); Monocytes # (Auto) 0.45 K/mcL (0.10-0.90); Monocytes % (Auto) 5.6 % (1.0-12.0); Neutrophils % (Auto) 75.3 % (38.0-78.0); Platelet Count 187 K/mcL (140-440); RBC 3.34 M/mcL (4.63-6.08); Red Cell Distribution Width 15.5 % (11.5-14.5); WBC 8.1 K/mcL (4.5-11.0)
[2023-01-27 07:19] LABS: ALT/SGPT 75 U/L (<40); AST/SGOT 86 U/L (<40); Albumin 3.2 gm/dL (3.2-5.2); Alkaline Phosphatase 78 U/L (39-117); Bilirubin,Direct 0.2 mg/dL (<0.3); Bilirubin,Total 0.7 mg/dL (0.1-1.0); Blood Urea Nitrogen 31 mg/dL (8-23); Calcium 9.2 mg/dL (8.6-10.4); Carbon Dioxide 22 mmol/L (22-30); Chloride 109 mmol/L (96-108); Globulin 3.3 gm/dL (2.2-3.7); Glomerular Filtration Rate 36; Glucose 114 mg/dL (70-105); Lactate Dehydrogenase 307 U/L (135-225); Phosphorous 1.9 mg/dL (2.5-4.5); Triglycerides 292 mg/dL (<150); Uric Acid 3.3 mg/dL (2.5-8.0)
[2023-01-27] MEDS: METOPROLOL SUCCINATE 25 MG TAB.XL.24H PO SCH ×2 (08:21→20:10)
[2023-01-27] MEDS: amLODIPine 10 MG TABLET PO SCH (08:21)
[2023-01-27] MEDS: LOSARTAN 50 MG TABLET PO SCH (08:21)
[2023-01-27] MEDS: predniSONE 5 MG TABLET PO SCH (08:21)
[2023-01-27] MEDS: PANTOPRAZOLE 40 MG VIAL IV SCH ×2 (08:22→17:28)
--- NOTE | 2023-01-27 13:42 | General Surgery Progress Note ---
SUBJECTIVE Subjective Patient information: Note initiated : 01/27/23 at 1:39 pm Service Date, if different from initiated Date: [] Patient: Nico Burrows 87 y/o M admitted on 01/23/23 for nausea/vomiting, tachypnea/hernia, cholesistitis. Chief Complaint: [] Principal diagnosis: Acute gangrenous cholecystitis Interval history: Patient continues to improve. He is afebrile. He still has bloody drainage in his Hans drain. His pain is controlled. White blood count 8.1, hemoglobin 9.9, hematocrit 30.5, BUN 31, creatinine 1.7, phosphorus 1.9, potassium 4.5. Constitutional Vitals: Vital Signs Temp Pulse Resp BP Pulse Ox O2 Del Method O2 Flow Rate 97.5 F 76 18 155/76 97 Room Air 0 01/27/23 12:00 01/27/23 12:00 01/27/23 12:00 01/27/23 12:00 01/27/23 12:00 01/27/23 12:00 01/26/23 16:00 Period Temp Pulse Resp BP Sys/Rollins Pulse Ox O2 Del Method O2 Flow Rate Last 24 Hr 97.5 F-98.7 F 62-90 16-20 121-155/65-83 95-100 Room Air-Room Air 0 Intake and Output 01/27/23 01/27/23 01/27/23 03:59 11:59 19:59 Intake Total 550 150 Output Total 50 40 Balance 500 110 Weight 248 lb Intake & Output: Intake & Output 01/27/23 01/27/23 01/27/23 03:59 11:59 19:59 Intake Total 550 150 Output Total 50 40 Balance 500 110 Weight 248 lb Intake: IV 150 150 Zosyn 2.25 gm In Dextrose 5% in 50 50 Water 50 ml @ 100 mls/hr IV Q6H [facility] Rx#:[id number] Oral 400 Output: Drainage 50 40 Abdomen 50 40 Other: Meal Breakfast Percent of Meal Consumed 100% Feeding Ability Independent # Bowel Movements 1 ENT ENT exam: Present mucous membranes moist, normal external ear exam and normal oropharynx Neck Neck exam: Present full ROM and normal inspection Respiratory Respiratory exam: Present normal respiratory exam and CTAB Cardiovascular Cardiovascular exam: Present normal rate and rhythm, RRR, +S1 and +S2; Absent JVD GI/Abdominal GI/Abdominal exam: Present normal bowel sounds, distended (Mild diffuse distention) and tenderness (Incisional tenderness around port sites) Extremities Exam Extremities exam: Present normal inspection and neurovascular intact Neurological Exam Neurological exam: Present oriented X3; Absent motor sensory deficit Psychiatric Psychiatric exam: Present normal affect and normal mood A/P Assessment and plan (1) Cholelithiasis and cholecystitis without obstruction: Status: Acute (2) Anemia due to stage 3b chronic kidney disease: Status: Chronic (3) Localized edema due to fluid overload: Status: Chronic (4) Diabetes mellitus, type II: Status: Chronic (5) History of pulmonary embolism: Status: Chronic (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
[2023-01-28] MEDS: PIPERACILLIN SODIUM/TAZOBACTAM 2.25 GM in DEXTROSE 5% IN WATER 50 ML IV SCH ×2 (05:18→11:35)
[2023-01-28] MEDS: ACETAMINOPHEN 1,000 MG/100 ML BAG IV SCH (06:03)
[2023-01-28] MEDS: METOPROLOL SUCCINATE 25 MG TAB.XL.24H PO SCH (08:56)
[2023-01-28] MEDS: amLODIPine 10 MG TABLET PO SCH (08:56)
[2023-01-28] MEDS: PANTOPRAZOLE 40 MG VIAL IV SCH (08:56)
[2023-01-28] MEDS: LOSARTAN 50 MG TABLET PO SCH (08:57)
[2023-01-28] MEDS: predniSONE 5 MG TABLET PO SCH (08:57)
--- NOTE | 2023-01-28 13:48 | Discharge Summary ---
Discharge Provider Provider IMPORTANT FOLLOW-UP INFORMATION FOR PCP: Patient information: Note initiated : 01/28/23 at 1:47 pm Service Date, if different from initiated Date: [] Patient: Nico Burrows 87 y/o M admitted on 01/23/23 for nausea/vomiting, tachypnea/hernia, cholesistitis. Chief Complaint: [] Date of admission: 01/23/23 15:58 Discharge date: 01/28/23 Primary care physician: Jay Tierney MD Admitting clinician: Robert Cali Attending physician on admission: Robert Cali Consults: 01/24/23 07:10 Consult to Physician [CONS] Routine Comment: Consulting Provider: Robert Cali Reason For Exam: Physician to Consult Attending physician on discharge: Robert Cali Discharging clinician: Robert Cali COURSE Hospital Course Hospital course: 87-year-old male with history of right upper quadrant and epigastric abdominal pain radiating through to the back with nausea. Patient presented to the emergency room with a tender abdomen and leukocytosis. Abdominal ultrasound revealed acute cholecystitis with Cholelithiasis. The patient was anticoagulated with Coumadin and received IV vitamin K and 3 units of fresh frozen plasma. After his pro time was corrected he underwent laparoscopy with the finding of acute gangrenous necrosis of the gallbladder. An uneventful cholecystectomy was performed. The patient has done well in the postoperative.. He has been afebrile. He is tolerating diet. Patient is stable for discharge Discharge diagnosis: Acute gangrenous cholecystitis with cholelithiasis Secondary discharge diagnosis: Long-term anticoagulation with Coumadin History of PE 23 years ago Diabetes mellitus Hypertension Osteoarthritis Reason for admission: Acute cholecystitis Procedures: Laparoscopic cholecystectomy Pertinent studies/significant findings: CT of abdomen and pelvis with contrast Upper abdominal ultrasound Complications: None Time Spent with Patient Time attestation: Total time spent providing and/or coordinating discharge services: Time spent: Less than 30 minutes Physical Examination Vital Signs Vital signs: Temp Pulse Resp BP Pulse Ox O2 Del Method O2 Flow Rate 97.9 F 80 16 152/80 99 Room Air 0 01/28/23 11:32 01/28/23 11:32 01/28/23 11:32 01/28/23 11:32 01/28/23 11:32 01/28/23 11:32 01/26/23 16:00 General physical appearance General physical exam: well developed, well nourished, moderate distress, severe pain and obese Eyes Eye exam: PERRL and normal ocular movement; negative icteric ENT ENT exam: normal mucosa, no congestion and decreased hearing Head Head exam IM: Present atraumatic, normal inspection and normocephalic Neck Neck exam: no masses, no bruits, trachea midline, no lymphadenopathy and no venous distension Cardiovascular Cardiovascular exam IM: Present normal rate and rhythm, RRR, +S1 and +S2; Absent JVD Respiratory Respiratory exam: normal expansion, normal respiratory effort, clear to percussion and clear to auscultation Abdomen Abdomen: Present tender (Mild tenderness around port site and drain), guarding and distended Integumentary Integumentary: Present no rash, no growths, no abnormal pigmentation and other (Extensive bruising) Neurologic Neurologic: Present normal coordination and normal sensation Musculoskeletal Musculoskeletal: Present normal gait and normal posture Psychiatric Psychiatric: Present oriented to time, oriented to person, oriented to place, speech is normal and memory intact Discharge Plan Patient/Caregiver Discharge Instructions Activity: increase activity as tolerated Diet: Low Fat and Consistent Carbohydrate Prescriptions: New amoxicillin-pot clavulanate [Augmentin] 500-125 mg tablet 1 tab PO BID Qty: 20 0RF Continued telmisartan [Micardis] 20 mg tablet 20 mg PO QDAY Qty: 90 1RF metoprolol succinate 25 mg tablet extended release 24 hr 25 mg PO BID Qty: 180 1RF allopurinol 300 mg tablet 300 mg PO QDAY Qty: 90 1RF furosemide [Lasix] 20 mg tablet 20 mg PO QAM Qty: 90 1RF amlodipine [Norvasc] 10 mg tablet 10 mg PO QDAY Qty: 90 1RF rosuvastatin [Crestor] 20 mg tablet 20 mg PO QDAY Qty: 90 1RF metformin 500 mg tablet extended release 24hr 500 mg PO QDAY Qty: 90 1RF omeprazole 20 mg capsule,delayed release(DR/EC) 20 mg PO QDAY Qty: 90 1RF nitroglycerin 0.4 mg tablet, sublingual 0.4 mg SUBLINGUAL Q5M PRN (Reason: chest pain ) prednisone 5 mg tablet 2.5 mg PO QDAY Qty: 90 1RF cholecalciferol (vitamin D3) 50 mcg (2,000 unit) tablet 50 mcg PO QDAY Qty: 90 3RF aspirin 81 MG tablet,chewable 81 mg PO DAILY Patient Comments: not taking currently vitamin A-vitamin C-vit E-min Tablet 1 tab PO QDAY Patient Comments: not taking now Discontinued warfarin 5 mg tablet 5 mg PO QDAY Qty: 90 1RF Protocol: Dose Management Condition: Sunday Dose/Route: 6.5 mg Instruction: 6.5 x 1 mg tablets Condition: Sunday Dose/Route: 6.5 mg Instruction: 6.5 x 1 mg tablets Condition: Sunday Dose/Route: 6.5 mg Instruction: 6.5 x 1 mg tablets Condition: Sunday Dose/Route: 6.5 mg Instruction: 6.5 x 1 mg tablets Condition: Dose/Route: 6.5 mg Instruction: 6.5 x 1 mg tablets Condition: Sunday Dose/Route: 6.5 mg Instruction: 6.5 x 1 mg tablets Condition: Sunday Dose/Route: 6.5 mg Instruction: 6.5 x 1 mg tablets Protocol Text: Adjustment Start Date: 01/18/23 INR Value: 2.1 INR Date: 01/18/23 Recheck Date: 02/09/23 Rx Instructions: Or as directed by physician (Taking 6.5mg on M,, and 7mg the other 4 days) warfarin 1 mg tablet 1.5 mg PO QDAY Qty: 135 1RF Protocol: Dose Management Condition: Sunday Dose/Route: 6.5 mg Instruction: 6.5 x 1 mg tablets Condition: Sunday Dose/Route: 6.5 mg Instruction: 6.5 x 1 mg tablets Condition: Sunday Dose/Route: 6.5 mg Instruction: 6.5 x 1 mg tablets Condition: Sunday Dose/Route: 6.5 mg Instruction: 6.5 x 1 mg tablets Condition: Dose/Route: 6.5 mg Instruction: 6.5 x 1 mg tablets Condition: Sunday Dose/Route: 6.5 mg Instruction: 6.5 x 1 mg tablets Condition: Sunday Dose/Route: 6.5 mg Instruction: 6.5 x 1 mg tablets Protocol Text: Adjustment Start Date: 01/18/23 INR Value: 2.1 INR Date: 01/18/23 Recheck Date: 02/09/23 Rx Instructions: 6.5 mg on Sunday, Sunday and Sunday, 7mg the other 4 days or as directed Prescription drug monitoring program results: PDMP not reviewed Follow Up Plan Follow up with: Robert Cali MD [Physician] - 02/08/23 11:30 am Patient Disposition: Home, Self-Care Prognosis: Fair Rehab Potential: Good I certify that the patient requires SNF services: No Overall status at discharge: patient is progressing back to baseline Discharge Orders: Discharge Order (Routine); Ordered 01/28/23 Ordered By: Robert Cali Pending Pending Pending: Resuscitation Status Resuscitate (Full Code) Diet Consistent Carbohydrate Diet Start Samantha Jan 25 0800 Amlodipine Besylate (Amlodipine 10 Mg Tablet) 10 mg PO QDAY [facility] Last Admin: 01/28/23 08:56 Dose: 10 mg Documented By: [email or web address] Admin: 01/27/23 08:21 Dose: 10 mg Documented By: [email or web address] Admin: 01/26/23 09:18 Dose: 10 mg Documented By: Admin: 01/25/23 10:07 Dose: 10 mg Documented By: Admin: 01/24/23 10:55 Dose: Not Given Documented By: FMF Hydromorphone HCl (Hydromorphone 0.5 Mg/0.5 Ml Syringe) 1 mg IV Q2HP PRN; Protocol PRN Reason: Per Pain Protocol Last Admin: 01/24/23 05:31 Dose: 1 mg Documented By: [email or web address] Admin: 01/24/23 01:55 Dose: 1 mg Documented By: [email or web address] Admin: 01/23/23 23:45 Dose: 1 mg Documented By: [email or web address] Admin: 01/23/23 21:36 Dose: 1 mg Documented By: [email or web address] Admin: 01/23/23 18:50 Dose: 1 mg Documented By: [email or web address] Admin: 01/23/23 12:38 Dose: 1 mg Documented By: [email or web address] Acetaminophen (Ofirmev) 1,000 mg in 100 mls @ 200 mls/hr IV Q6H [facility] Last Admin: 01/28/23 06:03 Dose: 200 mls/hr Documented By: [email or web address] Infusion: 01/28/23 00:18 Dose: 0 mls/hr Documented By: [email or web address] Infusion: 01/27/23 23:51 Dose: 200 mls/hr Documented By: Infusion: 01/27/23 23:51 Dose: 0 mls/hr Documented By: [email or web address] Admin: 01/27/23 23:48 Dose: 200 mls/hr Documented By: [email or web address] Infusion: 01/27/23 18:00 Dose: 0 mls/hr Documented By: Admin: 01/27/23 17:29 Dose: 200 mls/hr Documented By: Infusion: 01/27/23 14:00 Dose: 0 mls/hr Documented By: Admin: 01/27/23 13:25 Dose: 200 mls/hr Documented By: [email or web address] Infusion: 01/27/23 06:29 Dose: 0 mls/hr Documented By: Admin: 01/27/23 05:43 Dose: 200 mls/hr Documented By: Infusion: 01/27/23 01:37 Dose: 0 mls/hr Documented By: Admin: 01/27/23 01:04 Dose: 200 mls/hr Documented By: [email or web address] Infusion: 01/26/23 19:28 Dose: 0 mls/hr Documented By: Admin: 01/26/23 18:55 Dose: 200 mls/hr Documented By: Infusion: 01/26/23 15:12 Dose: 200 mls/hr Documented By: Admin: 01/26/23 13:55 Dose: 200 mls/hr Documented By: Infusion: 01/26/23 06:59 Dose: 200 mls/hr Documented By: Admin: 01/26/23 06:03 Dose: 200 mls/hr Documented By: Infusion: 01/26/23 00:50 Dose: 0 mls/hr Documented By: Admin: 01/26/23 00:19 Dose: 200 mls/hr Documented By: Infusion: 01/25/23 19:30 Dose: 0 mls/hr Documented By: Admin: 01/25/23 18:58 Dose: 200 mls/hr Documented By: Infusion: 01/25/23 13:51 Dose: 200 mls/hr Documented By: Admin: 01/25/23 12:48 Dose: 200 mls/hr Documented By: Infusion: 01/25/23 05:43 Dose: 0 mls/hr Documented By: Admin: 01/25/23 05:03 Dose: 200 mls/hr Documented By: Infusion: 01/25/23 00:15 Dose: 0 mls/hr Documented By: Admin: 01/24/23 23:38 Dose: 200 mls/hr Documented By: Infusion: 01/24/23 18:12 Dose: 200 mls/hr Documented By: Admin: 01/24/23 17:42 Dose: 200 mls/hr Documented By: Infusion: 01/24/23 14:29 Dose: 0 mls/hr Documented By: Admin: 01/24/23 13:58 Dose: 200 mls/hr Documented By: Infusion: 01/24/23 07:30 Dose: 0 mls/hr Documented By: Infusion: 01/24/23 07:05 Dose: 200 mls/hr Documented By: Admin: 01/24/23 06:53 Dose: 200 mls/hr Documented By: Infusion: 01/24/23 01:52 Dose: 0 mls/hr Documented By: Admin: 01/24/23 01:06 Dose: 200 mls/hr Documented By: Infusion: 01/23/23 16:30 Dose: 0 mls/hr Documented By: Admin: 01/23/23 15:52 Dose: 200 mls/hr Documented By: Mode Piperacillin Sod/Tazobactam (Sod 2.25 gm/ Dextrose) 50 mls @ 100 mls/hr IV Q6H [facility] Last Admin: 01/28/23 11:35 Dose: 100 mls/hr Documented By: [email or web address] Infusion: 01/28/23 05:55 Dose: 0 mls/hr Documented By: Admin: 01/28/23 05:18 Dose: 100 mls/hr Documented By: Infusion: 01/27/23 23:51 Dose: 0 mls/hr Documented By: [email or web address] Admin: 01/27/23 23:21 Dose: 100 mls/hr Documented By: Infusion: 01/27/23 18:40 Dose: 0 mls/hr Documented By: [email or web address] Admin: 01/27/23 18:02 Dose: 100 mls/hr Documented By: [email or web address] Infusion: 01/27/23 13:15 Dose: 0 mls/hr Documented By: [email or web address] Admin: 01/27/23 12:45 Dose: 100 mls/hr Documented By: Infusion: 01/27/23 05:43 Dose: 0 mls/hr Documented By: Admin: 01/27/23 05:11 Dose: 100 mls/hr Documented By: [email or web address] Infusion: 01/27/23 01:04 Dose: 0 mls/hr Documented By: Admin: 01/27/23 00:27 Dose: 100 mls/hr Documented By: Infusion: 01/26/23 18:48 Dose: 100 mls/hr Documented By: Admin: 01/26/23 18:11 Dose: 100 mls/hr Documented By: Infusion: 01/26/23 13:56 Dose: 100 mls/hr Documented By: Admin: 01/26/23 12:43 Dose: 100 mls/hr Documented By: Infusion: 01/26/23 06:59 Dose: 100 mls/hr Documented By: Admin: 01/26/23 05:19 Dose: 100 mls/hr Documented By: Infusion: 01/26/23 00:15 Dose: 0 mls/hr Documented By: Admin: 01/25/23 23:42 Dose: 100 mls/hr Documented By: Infusion: 01/25/23 19:00 Dose: 0 mls/hr Documented By: Admin: 01/25/23 18:15 Dose: 100 mls/hr Documented By: Infusion: 01/25/23 12:49 Dose: 100 mls/hr Documented By: Admin: 01/25/23 11:58 Dose: 100 mls/hr Documented By: Infusion: 01/25/23 06:35 Dose: 100 mls/hr Documented By: Admin: 01/25/23 05:43 Dose: 100 mls/hr Documented By: Infusion: 01/25/23 01:10 Dose: 0 mls/hr Documented By: Admin: 01/25/23 00:38 Dose: 100 mls/hr Documented By: Infusion: 01/24/23 19:25 Dose: 0 mls/hr Documented By: Admin: 01/24/23 18:43 Dose: 100 mls/hr Documented By: Infusion: 01/24/23 15:10 Dose: 0 mls/hr Documented By: Admin: 01/24/23 14:39 Dose: 100 mls/hr Documented By: Infusion: 01/24/23 05:20 Dose: 0 mls/hr Documented By: Admin: 01/24/23 04:50 Dose: 100 mls/hr Documented By: Infusion: 01/24/23 01:54 Dose: 0 mls/hr Documented By: Admin: 01/24/23 00:54 Dose: 100 mls/hr Documented By: [email or web address] Infusion: 01/23/23 18:22 Dose: 0 mls/hr Documented By: [email or web address] Admin: 01/23/23 17:52 Dose: 100 mls/hr Documented By: ROBSON Losartan Potassium (Losartan 50 Mg Tablet) 50 mg PO DAILY [facility] Admin: 01/28/23 08:57 Dose: 50 mg Documented By: [email or web address] Admin: 01/27/23 08:21 Dose: 50 mg Documented By: Admin: 01/26/23 09:19 Dose: 50 mg Documented By: Admin: 01/25/23 10:07 Dose: 50 mg Documented By: Admin: 01/24/23 10:55 Dose: Not Given Documented By: ROBSON Metoprolol Succinate (Metoprolol Succinate 25 Mg Tab.Xl.24h) 25 mg PO BID [facility] Last Admin: 01/28/23 08:56 Dose: 25 mg Documented By: [email or web address] Admin: 01/27/23 20:10 Dose: 25 mg Documented By: Admin: 01/27/23 08:21 Dose: 25 mg Documented By: Admin: 01/26/23 20:09 Dose: 25 mg Documented By: Admin: 01/26/23 09:19 Dose: 25 mg Documented By: Admin: 01/25/23 20:40 Dose: 25 mg Documented By: Admin: 01/25/23 10:07 Dose: 25 mg Documented By: Admin: 01/24/23 20:58 Dose: 25 mg Documented By: Admin: 01/24/23 10:55 Dose: Not Given Documented By: Admin: 01/23/23 21:54 Dose: 25 mg Documented By: [email or web address] Pantoprazole Sodium ([facility] 40 Mg V[facility]) [facility] 01/28/23 08:56 Dose: 40 mg Documented By: Admin: 01/27/23 17:28 Dose: 40 mg Documented By: Admin: 01/27/23 08:22 Dose: 40 mg Documented By: Admin: 01/26/23 16:33 Dose: 40 mg Documented By: Admin: 01/26/23 07:08 Dose: 40 mg Documented By: Admin: 01/25/23 17:05 Dose: 40 mg Documented By: Admin: 01/25/23 07:28 Dose: 40 mg Documented By: Admin: 01/24/23 17:42 Dose: 40 mg Documented By: Admin: 01/24/23 06:59 Dose: 40 mg Documented By: Admin: 01/23/23 17:51 Dose: 40 mg Documented By: ROBSON Prednisone (Prednisone 5 Mg Tablet) 2.5 mg PO [facility] Admin: 01/28/23 08:57 Dose: 2.5 mg Documented By: [email or web address] Admin: 01/27/23 08:21 Dose: 2.5 mg Documented By: Admin: 01/26/23 08:53 Dose: 2.5 mg Documented By: Admin: 01/25/23 08:09 Dose: 2.5 mg Documented By: Admin: 01/24/23 10:54 Dose: Not Given Documented By: FMF Shift Summary 01/28/23 03:12 Shift Summary by Leandro Negron PT A&Ox4, pleasant and cooperative with cares, able to make needs known. Dressing CDI. Sl'd, no complaints of pain. Up to bathroom with FWW. possible DC today Initialized on 01/28/23 03:12 - END OF NOTE
--- NOTE | 2023-02-06 14:50 | Operative Note ---
DATE OF OPERATION: 01/24/2023 PREOPERATIVE DIAGNOSIS: Acute cholecystitis with cholelithiasis. POSTOPERATIVE DIAGNOSIS: Acute gangrenous cholecystitis with cholelithiasis. PROCEDURE: Laparoscopic cholecystectomy. SURGEON: Robert Cali M.D. FINDINGS: Acute severe gangrenous cholecystitis with near total necrosis of the gallbladder, except for the infundibulum and the cystic duct structures. DESCRIPTION OF PROCEDURE: Under general anesthesia, the patient's abdomen was prepped and draped in a sterile field. Supraumbilical incision was made. Veress needle was inserted. The abdomen was insufflated with 3 liters of CO2. A 12 mm port was placed and laparoscope was placed. It was quite apparent that the patient had near complete gangrenous changes of the gallbladder. The gallbladder was reddened and black with green staining of the wall and green staining in the suprahepatic space. Under videoscopic guidance, a 12 mm port and two 5 mm ports were placed in the right subcostal region. I tried to grab the gallbladder, but it simply fractured and dark bloody fluid escaped from the gallbladder. This was irrigated. The wall of the gallbladder pulled easily from the bed without any dissection. It was totally necrotic. Once most of the gallbladder was , it was down to the infundibulum. Dissection of the infundibulum was carried out until the duct was identified. The duct was clipped with five clips and divided. Cystic artery was partially necrotic. The more proximal portion as it exited the right hepatic was viable and it was clipped there with three clips and . Gallbladder was placed in an Endopouch and retrieved. Copious irrigation was carried out. There was not that much bleeding because all of the tissue was necrotic. A Hans drain was placed in the subhepatic space. Careful inspection was carried out over the liver and there was a film of necrotic tissue between the liver and the peritoneum. This was bluntly dissected and this tissue was removed and placed in a separate Endopouch. More irrigation was carried out. CO2 was allowed to escape from the abdomen and the ports were removed. The fascia at the umbilicus was closed with 0 Vicryl. Skin incisions were closed with jolly. The drain was secured with 2-0 nylon. The patient tolerated the procedure well. He was awakened and transferred to the postanesthetic care unit in satisfactory condition. LCS:mitchell Job ID: [id number] Doc ID: [id number] Robert Cali M.D.
== END 2023-01-28 15:35 | disposition home or self-care (01) | DRG 418 ==
LOC: ED 07:33 → MEDSUR 07:33
PROVIDERS: ADMIT Family Medicine Adult Medicine; ATTEND Family Medicine Adult Medicine